=== PATIENT | male | born 1990 | race Caucasian/White ===

== ENCOUNTER 2018-07-27 01:02 | Emergency (ER) | payer SELFPAY ==
[~2018-07-27] VITALS: Ht 177.8 cm; Wt 63.5 kg
--- NOTE | 2018-07-27 01:15 | NUR ---
PATIENT BIB BY STAFF MEMBER FROM [facility] FOR MEDICAL CLEARANCE TO BE ADMITTED IN THE FACILITY. PATIENT WITH NO DISTRESS NOTED AND WITH NO COMPLAINTS. DR CEO INTO EVAL PATIENT.
[2018-07-27 01:37] LABS: BASOPHILS # (AUTO) 0.1 K/uL (0.0-8.0); BASOPHILS % (AUTO) 0.7 % (0.0-2.0); EOSINOPHILS # (AUTO) 0.3 K/uL (0.0-0.7); EOSINOPHILS % (AUTO) 4.4 % (0.0-7.0); HEMATOCRIT 42.6 % (36.7-47.1); HEMOGLOBIN 14.2 g/dL (12.5-16.3); LYMPHOCYTES # (AUTO) 2.5 K/uL (20.0-40.0); LYMPHOCYTES % (AUTO) 31.9 % (20.5-51.5); MEAN CORPUSCULAR HEMOGLOBIN 28.3 uug (23.8-33.4); MEAN CORPUSCULAR HGB CONC 33 g/dL (32.5-36.3); MEAN CORPUSCULAR VOLUME 84.9 fL (73.0-96.2); MONOCYTES # (AUTO) 0.6 K/uL (2.0-10.0); MONOCYTES % (AUTO) 8.2 % (0.0-11.0); NEUTROPHILS # (AUTO) 4.3 K/uL (1.8-8.9); NEUTROPHILS % (AUTO) 54.8 % (38.5-71.5); PLATELET COUNT (AUTO) 344 K/uL (152-348); RED BLOOD CELL COUNT(AUTO) 5.01 MIL/uL (4.06-5.63); WHITE BLOOD COUNT (AUTO) 7.8 K/uL (3.6-10.2)
[2018-07-27 01:42] LABS: CARBON DIOXIDE 31 mmol/L (21-32); CHLORIDE 104 mmol/L (98-107); GLUCOSE 134 mg/dL (74-106); POTASSIUM 3.6 mmol/L (3.5-5.1); UREA NITROGEN, BLOOD 11 mg/dL (7-18)
[2018-07-27 01:54] LABS: ALANINE AMINOTRANSFERASE 147 U/L (16-63); ALKALINE PHOSPHATASE 152 U/L (50-136); ASPARTATE AMINOTRANSFERASE 118 U/L (15-37); BILIRUBIN,DIRECT 0.2 mg/dL (0.0-0.2); BILIRUBIN,TOTAL 0.6 mg/dL (0.2-1.0); TOTAL PROTEIN, SERUM 7.3 g/dL (6.4-8.2)
[2018-07-27 01:55] LABS: ETHANOL < 3 MG/DL (0-0)
[2018-07-27 02:08] VITALS: BP 115/77
--- NOTE | 2018-07-27 02:08 | NUR ---
Patient discharged to home in stable conditon WITH REHAB STAFF MEMBER. Written and verbal after care instructions given. Patient verbalizes understanding of instructions. WALKED OUT OF ER WITH NO DISTRESS NOTED
== END 2018-07-27 02:10 | disposition home or self-care (01) ==
LOC: ER 01:09
DX: F11.10 Opioid abuse, uncomplicated (principal); F15.10 Other stimulant abuse, uncomplicated; F17.290 Nicotine dependence, other tobacco product, uncomplicated; Z71.6 Tobacco abuse counseling; Z88.8 Allergy status to other drugs, medicaments and biological substances
CPT/HCPCS: 36415; 80048; 80076; 85025; 99283; 99406; G0480; A4663

== ENCOUNTER 2018-08-30 14:45 | Emergency (ER) | payer OTHER ==
[~2018-08-30] VITALS: Ht 180.3 cm; Wt 70.3 kg
[2018-08-30 15:25] LABS: BASOPHILS % (AUTO) 0.4 % (0.0-2.0); EOSINOPHILS % (AUTO) 0.5 % (0.0-7.0); HEMATOCRIT 42.6 % (36.7-47.1); HEMOGLOBIN 14.3 g/dL (12.5-16.3); LYMPHOCYTES # (AUTO) 2.6 K/uL (20.0-40.0); LYMPHOCYTES % (AUTO) 27.5 % (20.5-51.5); MEAN CORPUSCULAR HEMOGLOBIN 29.1 uug (23.8-33.4); MEAN CORPUSCULAR HGB CONC 34 g/dL (32.5-36.3); MEAN CORPUSCULAR VOLUME 86.8 fL (73.0-96.2); NEUTROPHILS # (AUTO) 5.7 K/uL (1.8-8.9); NEUTROPHILS % (AUTO) 60.6 % (38.5-71.5); PLATELET COUNT (AUTO) 395 K/uL (152-348); WHITE BLOOD COUNT (AUTO) 9.4 K/uL (3.6-10.2)
[2018-08-30 15:30] LABS: CREATININE 0.8 mg/dL (0.6-1.3); POTASSIUM 4.3 mmol/L (3.5-5.1)
[2018-08-30 15:36] LABS: BILIRUBIN,TOTAL 0.5 mg/dL (0.2-1.0); TOTAL PROTEIN, SERUM 7.8 g/dL (6.4-8.2)
[2018-08-30 15:41] VITALS: BP 133/80
--- NOTE | 2018-08-30 15:41 | NUR ---
Patient discharged to home in stable conditon. Written and verbal after care instructions given. Patient verbalizes understanding of instructions. ALL BELONGINGS W/ PT. PT SELF-AMBULATED W/O DIFFICULTY.
== END 2018-08-30 15:43 | disposition home or self-care (01) ==
LOC: ER 14:45
DX: Z04.6 Encounter for general psychiatric examination, requested by authority (principal); F17.200 Nicotine dependence, unspecified, uncomplicated; F12.10 Cannabis abuse, uncomplicated; Z88.8 Allergy status to other drugs, medicaments and biological substances
CPT/HCPCS: 36415; 85025; A4663